=== PATIENT | male | born 1985 | race Caucasian/White ===

== ENCOUNTER 2017-12-20 13:47 | Emergency (ER) | payer BC ==
--- NOTE | 2017-12-20 14:16 | UC ---
Upper Extremity HPI - HPI Summary HPI Summary: slipped on wet rock yesterday and injured R hand. today more swollen and painful using ASA for pain which works well until it wears off - History of Current Complaint Chief Complaint: UCUpperExtremity Stated Complaint: HAND INJURY Time Seen by Provider: 12/20/17 14:10 Hx Obtained From: Patient Onset/Duration: Sudden Onset Severity Initially: Moderate Severity Currently: Mild Pain Intensity: 3 Character: Sharp, Stiffness Aggravating Factor(s): Movement Alleviating Factor(s): Ice, Rest Associated Signs And Symptoms: Positive: Swelling. Negative: Weakness, Numbness /Tingling - Allergies/Home Medications Allergies/Adverse Reactions: Allergies Allergy/AdvReac Type Severity Reaction Status Date / Time No Known Allergies Allergy Verified 12/20/17 14:01 PMH/Surg Hx/FS Hx/Imm Hx Previously Healthy: Yes Cardiovascular History: Cardiac Disease, Hypertension - Surgical History Surgery Procedure, Year, and Place: [facility] - follow up - Family History Known Family History: Positive: Hypertension - Social History Occupation: Employed Full-time Lives: With Family Alcohol Use: Weekly Substance Use Type: Marijuana Smoking Status (MU): Never Smoked Tobacco Review of Systems Constitutional: Negative Skin: Negative Respiratory: Negative Cardiovascular: Negative Musculoskeletal: Decreased ROM Neurological: Negative Psychological: Negative All Other Systems Reviewed And Are Negative: Yes Physical Exam Triage Information Reviewed: Yes Appearance: Well-Appearing, No Pain Distress, Well-Nourished Vital Signs: Initial Vital Signs Temp 97.7 F 12/20/17 13:57 Pulse 74 12/20/17 13:57 Resp 20 12/20/17 13:57 BP 110/65 12/20/17 13:57 Pulse Ox 98 12/20/17 13:57 Vital Signs Reviewed: Yes Respiratory Exam: Normal Cardiovascular Exam: Normal Cardiovascular: Positive: Pulses Normal, Brisk Capillary Refill Musculoskeletal: Positive: Strength Limited @ - R hand Neurological Exam: Normal Psychological Exam: Normal Skin Exam: Normal Procedures - Splinting Right Upper Extremity Hand-Made Type: orthoglass Splint: ulnar Pre-Proc Neuro Vasc Exam: normal Post-Proc Neuro Vasc Exam: normal Upper Extremity Course/Dx - Differential Dx/Diagnosis Differential Diagnosis/HQI/PQRI: Contusion, Fracture (Closed), Strain Provider Diagnoses: fractured R 4th metacarpal Discharge - Sign-Out/Discharge Documenting (check all that apply): Patient Departure - Discharge Plan Condition: Good Disposition: HOME Patient Education Materials: Hand Fracture (ED) Referrals: Santos Santillan MD [Primary Care Provider] - Kofi Medeiros MD [Medical Doctor] - (call office tomorrow) Additional Instructions: apply ice and elevate hand. Use aspirin and tylenol for pain relief call orthopedics tomorrow for further care broken hand bone - Billing Disposition and Condition Condition: GOOD Disposition: Home
--- NOTE | 2017-12-20 14:35 | RAD ---
INDICATION: Fourth metacarpal pain post fall. COMPARISON: No relevant prior exams available on the [facility] for comparison. TECHNIQUE: AP, lateral, and oblique views RIGHT hand. REPORT: Diaphyseal fracture of the fourth metacarpal with minimal dorsal displacement. Overlying soft tissue swelling. Normal articular alignment. IMPRESSION: #. Nonarticular only minimally displaced fracture at the diaphysis of the fourth metacarpal.
== END 2017-12-20 14:52 | disposition home or self-care (01) ==
LOC: UCEAST 13:47
DX: S62.316A Displaced fracture of base of fifth metacarpal bone, right hand, initial encounter for closed fracture (principal); S62.314A Displaced fracture of base of fourth metacarpal bone, right hand, initial encounter for closed fracture; W01.0XXA Fall on same level from slipping, tripping and stumbling without subsequent striking against object, initial encounter; Y93.9 Activity, unspecified; Y92.9 Unspecified place or not applicable; I10 Essential (primary) hypertension
CPT/HCPCS: 99202; G0463